=== PATIENT | male | born 1965 | race Hispanic/Latino ===

== ENCOUNTER 2017-10-24 06:37 | Emergency (ER) | payer OTHER ==
[2017-10-24] MEDS ORDERED: Sodium Chloride 0.9% 1,000 ML IV ONE (07:29)
[2017-10-24 07:51] LABS: BASO % 0.2 % (0.0-2.0); EOS % 0.5 % (0.0-4.0); HEMOGLOBIN 13.5 g/dL (12.0-18.0); LYMPH # 0.6 K/uL (1.0-4.3); LYMPH % 6.7 % (20.0-40.0); MEAN CELL VOLUME 88.1 fL (80.0-94.0); MEAN CORPUSCULAR HEMOGLOBIN 31.1 pg (27.0-31.0); MEAN CORPUSCULAR HGB CONC 35.3 g/dL (33.0-37.0); MEAN PLATELET VOLUME 7.1 fL (7.2-11.7); MONO # 0.6 K/uL (0.0-0.8); MONO % 6.2 % (0.0-10.0); NEUT # 8.3 K/uL (1.8-7.0); NEUT % 86.4 % (50.0-75.0); NRBC % 0.1 % (0.0-2.0); PLATELET COUNT 212 K/uL (130-400); RBC 4.33 Mil/uL (4.40-5.90); RED CELL DISTRIBUTION WIDTH 12.9 % (11.5-14.5); WHITE BLOOD COUNT 9.7 K/uL (4.8-10.8)
[2017-10-24] MEDS ORDERED: Sodium Chloride 0.9% 1,000 ML ONE (08:06)
[2017-10-24 08:16] LABS: ALB/GLOB RATIO 1.7 (1.0-2.1); ALBUMIN 4.4 g/dL (3.5-5.0); ALT/SGPT 21 U/L (21-72); AST/SGOT 27 U/L (17-59); BLOOD UREA NITROGEN 13 mg/dL (9-20); CALCIUM 8.8 mg/dl (8.6-10.4); GFR AFRICAN-AMERICAN > 60; GFR NON-AFRICAN AMERICAN > 60
[2017-10-24 08:20] LABS: LYMPHOCYTE 9 % (20-40); MONOCYTE 5 % (0-10); NEUTROPHIL 86 % (50-75); PLATELET ESTIMATE NORMAL (NORMAL); TOTAL CELLS COUNTED 100
--- NOTE | 2017-10-24 08:45 | C.PDOC ---
History Of Present Illness 52-year-old male with no PMHx presents to the emergency department with complaints of chest tightness radiating to abdomen that started last night after he ate a marijuana gummy bear. Patient states the symptoms lasted about 1 -2 hours, and then resolved. He denies nausea/vomiting, shortness of breath, palpitations, current chest pain, dizziness, headache, visual changes, or any other associated symptoms. Pt admits to family Hx of CAD in father. Time Seen by Provider: 10/24/17 07:14 Chief Complaint (Nursing): Chest Pain History Per: Patient History/Exam Limitations: no limitations Onset/Duration Of Symptoms: Hrs Current Symptoms Are (Timing): Gone Severity: Mild Past Medical History Reviewed: Historical Data, Nursing Documentation, Vital Signs Vital Signs: Last Vital Signs Temp 100.0 F H 10/24/17 09:02 Pulse 89 10/24/17 09:02 Resp 18 10/24/17 09:02 BP 142/83 10/24/17 09:02 Pulse Ox 100 10/24/17 13:22 - Medical History PMH: No Chronic Diseases Family History: States: No Known Family Hx - Social History Hx Alcohol Use: Yes Hx Substance Use: Yes - Immunization History Hx Tetanus Toxoid Vaccination: Yes (10 years ago) Hx Influenza Vaccination: No Hx Pneumococcal Vaccination: No Review Of Systems Constitutional: Negative for: Fever Cardiovascular: Positive for: Chest Pain (+tightness). Negative for: Palpitations, Edema, Light Headedness Respiratory: Negative for: Cough, Shortness of Breath Gastrointestinal: Negative for: Nausea, Vomiting, Abdominal Pain, Diarrhea Musculoskeletal: Negative for: Neck Pain, Arm Pain Skin: Negative for: Rash Neurological: Negative for: Weakness, Headache, Dizziness Physical Exam - Physical Exam Appears: Well, Non-toxic, No Acute Distress Skin: Normal Color, Warm, Dry, No Rash Head: Normacephalic Eye(s): bilateral: Normal Inspection Oral Mucosa: Moist Cardiovascular: Rhythm Regular Respiratory: Normal Breath Sounds, No Rales, No Rhonchi, No Wheezing Gastrointestinal/Abdominal: Normal Exam, Bowel Sounds, Soft, No Tenderness Extremity: Normal ROM, No Pedal Edema, No Calf Tenderness Pulses: Left Dorsalis Pedis: Normal, Right Dorsalis Pedis: Normal Neurological/Psych: Oriented x3 ED Course And Treatment - Laboratory Results Result Diagrams: 10/24/17 07:35 10/24/17 07:35 ECG: Interpreted By Me, Viewed By Me (sinus rhythm 98 bpm, normal axis, no acute ST/T wave changes) ECG Interpretation: Normal O2 Sat by Pulse Oximetry: 100 (RA) Pulse Ox Interpretation: Normal Progress Note: Blood work, EKG ordered and reviewed. Patient given IV NS bolus. Reevaluation Time: 08:50 Reassessment Condition: Improved (Patient resting comfortably, currently asymptomatic, states he feels well. Patient will be discharged, was instructed to follow up with PMD/clinic in 1-2 days. He understands he should return to ED if symptoms worsen.) Disposition Counseled Patient/Family Regarding: Studies Performed, Diagnosis, Need For Followup - Disposition Referrals: [facility] [Outside] Disposition: HOME/ ROUTINE Disposition Time: 08:50 Condition: STABLE Additional Instructions: FOLLOW UP WITH YOUR DOCTOR/CLINIC IN 1-2 DAYS RETURN TO ER IF YOU HAVE ANY CONCERNING SYMPTOMS Instructions: Marijuana Forms: [employer] (Japanese) Print Language: HEBREW - POA Present On Arrival: None - Clinical Impression Clinical Impression: Marijuana use - Scribe Statement The provider has reviewed the documentation as recorded by the Scribe (Rocio Bach) All medical record entries made by the Scribe were at my direction and personally dictated by me. I have reviewed the chart and agree that the record accurately reflects my personal performance of the history, physical exam, medical decision making, and the department course for this patient. I have also personally directed, reviewed, and agree with the discharge instructions and disposition.
[2017-10-24 09:05] VITALS: BP 142/83; PULSE 89; RESP 18; TEMP 100
[2017-10-24 09:43] VITALS: O2SAT 100
--- NOTE | 2017-10-24 20:39 | CARD ---
APPROVED REPORT Date of service: 10/24/2017 EKG Measurement Heart [id number] <Conclusion> Sinus rhythm with artifact Otherwise normal ECG
== END 2017-10-24 09:05 | disposition home or self-care (01) ==
LOC: C.ER 06:37
DX: F12.90 Cannabis use, unspecified, uncomplicated (principal)
CPT/HCPCS: 80053; 84484; 85025; 93005; 96360; 99285; J7030